=== PATIENT | female | born 1940 | race Caucasian/White ===

== ENCOUNTER 2016-10-06 00:46 | Emergency (ER) | payer MEDICARE ==
[~2016-10-06 00:46] MED LIST: ALBU2.5V4 INHALATION; ALPR1TAB7 PO; AMLO10TA3 PO; CLOP75TA3 PO; CLOT21CR7 VAGINAL; FLUT12AE8 IH; INSU100V4 SUBQ; LOSA100T29 PO; LOVA20TA PO; METF1000 PO; METO200T32 PO; MUPI22OI2 TOP; RANI300C PO; TRAZ-115 PO; VENL150C PO
[2016-10-06 00:58] VITALS: BP 194/83; RESP 14; O2SAT 100
--- NOTE | 2016-10-06 01:09 | ED.REPORT ---
HPI-General Illness Date of Service Oct 06, 2016 ED Provider: Saul Barreto DO Patient is a 76 year old female with a history of prior stroke, diabetes mellitus, hypertension, and COPD who presents to the ED complaining of a nosebleed persistent nosebleed that began at 8pm this evening. The patient states that she has been bleeding out of both nostrils, but more out of the right side. She also had a nosebleed last night before going to bed. Patient states that she picks at her nose often and that she has a hard time not doing so. The patient admits that she took a dose of Plavix this evening, believing that it would stop her bleeding. The patient no longer takes this medication regularly. Patient denies any other sources of bleeding. Patient is not on any other blood thinning medications. Nursing Notes Stated Complaint: NOSEBLEED Chief Complaint: ENT & Mouth Nursing Notes Reviewed: Yes Allergies: Coded Allergies: gabapentin (Verified Allergy, Unknown, Makes her act like she is drunk, ) Scheduled Amlodipine (Amlodipine) 10 Mg Tablet 10 MG PO DAILY Clopidogrel Bisulfate (Plavix) 75 Mg Tablet 75 MG PO DAILY Fluticasone Propionate (Flovent HFA 110 mcg) 12 Gm Aer.w.adap 2 PUFFS IH BID Insulin Detemir (Levemir U100 Insulin Vial) 100 Unit/1 Ml Vial 30 UNIT SUBQ BID Lovastatin (Lovastatin) 20 Mg Tablet 20 MG PO HS Metformin (Glucophage) 1,000 Mg Tablet 1,000 MG PO BID Metoprolol Succinate ER (Metoprolol Succinate ER) 200 Mg Tab.er.24h 200 MG PO DAILY Mupirocin (Mupirocin Ointment) 22 Gm Oint...g. 1 APPLIC TOP TID Ranitidine (Ranitidine) 300 Mg Capsule 300 MG PO HS Trazodone (Trazodone) 50 Mg Tablet 50 MG PO HS Venlafaxine ER (Effexor XR) 150 Mg Capsule 150 MG PO DAILY Scheduled PRN Albuterol Neb Soln (Albuterol Neb Soln) 2.5 Mg/3 Ml Vial.neb 2.5 MG INHALATION Q4H PRN PRN For Cough Miscellaneous Medications Alprazolam (Alprazolam) 1 Mg Tablet 1 MG PO Clotrimazole 2% (Gyne-Lotrimin 3 2%) 21 Gm Cream.appl 21 GM VAGINAL Losartan Potassium (Losartan Potassium) 100 Mg Tablet 100 MG PO General Time Seen by MD: 01:08 Chief Complaint Other (nosebleed) Hx Obtained From: Patient Arrived By: Walk-in Sudden in Onset?: No Onset Occurred: 5 - 8 hours ago Symptom Duration: Since onset Severity: Current: No pain currently Severity: Maximum: No pain Recent Healthcare: No recent doctor visit, No recent hospitalization Similar Sx Previous: Yes Past Medical History Past Medical History Hx of stroke High cholesterol Reports: COPD, Diabetes mellitus, Hypertension Past Surgical History knee replacement 2014 Family History Noncontributory Smoking History Former Smoker Social History Other Social History: Good social support, Local resident Ambulatory Status Independent Review of Systems Full Review of Systems Ears / Nose / Throat: Reports: Nose bleeding, Denies: Sinus problem Hematologic: Reports Bleeding, Denies Bruising Complete sys rev & neg: except as marked. Physical Exam Vital Signs Vital Signs Date Time Temp Pulse Resp B/P Pulse Ox O2 Delivery O2 Flow Rate FiO2 10/06/16 02:24 58 185/98 93 Room Air 10/06/16 00:58 35.1 88 14 194/83 100 Room Air Initial VS: Reviewed Extremities: Vascular intact, Neuro intact, No swelling Skin: Warm, Dry, No cyanosis Neurologic: Alert, Oriented, Nonfocal Psychiatric: Mood/affect normal, Behavior normal, Normal thought content General/Constitutional: Awake, Alert, No acute distress Appearance / Presentation: Positive: Obese Head / Eyes: Atraumatic, Normocephalic, PERRL ENT: Airway patent Nose: Positive: Anterior bleed ([place]), Epistaxis left, Epistaxis right Neck: Supple, Full range of motion Respiratory / Chest: No respiratory distress, No stridor Cardiovascular: Heart rate NL, Regular rhythm, Cap refill not delayed Interpretation & Diagnostics Lab Results Interpretation Result Diagram: 10/06/16 0133 10/06/16 0133 Test 10/06/16 01:33 White Blood Count 13.9th/mm3 (3.8-10.1) Red Blood Count 4.67mil/mm3 (3.90-5.20) Hemoglobin 11.4g/dL (12.0-15.6) Hematocrit 37.0% (35.0-46.0) Mean Corpuscular Volume 79.2fL (81-100) Mean Corpuscular Hemoglobin 24.4pg (27.0-35.0) Mean Corpuscular Hemoglobin Concent 30.8% (32.0-37.0) Red Cell Distribution Width 17.2% (12.3-15.4) Platelet Count 376bil/L (150-400) Neutrophils (%) (Auto) 56.1% (40-74) Lymphocytes (%) (Auto) 29.2% (14-46) Monocytes (%) (Auto) 9.8% (4-12) Eosinophils (%) (Auto) 3.2% (0-5) Basophils (%) (Auto) 0.9% (0-3) Sodium Level 138mEq/L (134-144) Potassium Level 4.9mEq/L (3.5-5.2) Chloride Level 101mEq/L (97-108) Carbon Dioxide Level 21mmol/L (18-29) Blood Urea Nitrogen 29mg/dL (8-27) Creatinine 1.23mg/dL (0.57-1.00) Estimat Glomerular Filtration Rate 60mL/min (>59) Glucose Level 253mg/dL (60-99) Calcium Level 8.7mg/dL (8.5-10.1) Total Bilirubin 0.3mg/dL (0.0-1.2) Aspartate Amino Transf (AST/SGOT) 14U/L (0-50) Alanine Aminotransferase (ALT/SGPT) 12U/L (0-32) Alkaline Phosphatase 91U/L (25-165) Total Protein 7.6g/dL (6.4-8.4) Albumin 3.8g/dL (3.4-5.0) Procedures Epistaxis Management Time: 01:50 Procedure Performed by: ED physician Consent / Setup / Site Prep: Consent from patient, Time-out performed, Oxygen administered, Pulse oximeter applied, commercial loan manager applied, Hand hygiene observed, Stand sterile technique Side and Location of Bleed: Nare right - anterior Pre-medication and Procedure: Oxymetazoline, Rapid rhino inserted Post-Procedure / Complications: Bleeding stopped, Patient stable, Tolerated procedure well Re-Eval/Medical Decision Med Decision/Clinical Course Excellent hemostasis with the Rhino Rocket. No blood pouring down the posterior oropharynx or refluxing out the opposite nares. H&H is reassuring. She tells me that she has a chronically elevated white blood cell count and her white blood cell count seems to be at its baseline. I will place her on Keflex while the pack is in place and referred nose and throat. Source of Hx: Old records Time of Eval: 01:50 Patient Status: Condition improved Re-Evaluation/Progress Note: Epistaxis management preformed. Bleeding is improved. Time of Eval: 02:50 Patient Status: Condition improved Re-Evaluation/Progress Note: Patient reports that she is still bleeding. On examination she simply has blood dripping from her nose. Discussed her lab results and need for close follow-up. Patient understands and agrees with the plan to be discharged home. Discharge instructions and follow-up discussed. All questions were addressed. Return to the ED warnings given. Counseled Regarding: Diagnosis, Lab results, Need for follow-up, When/why to return to ED Discharge & Departure Primary Impression: Epistaxis Disposition: Home Discharge Condition All VS Reviewed: Yes Condition: Stable Patient Instructions: Epistaxis (ED) Additional Instructions: Take Keflex 3 times daily while the packing is in. Try to leave the packing in for at least 2 days. It should be removed within the next 3 days. Set up an appointment with ENT to have your epistaxis definitively managed. Laboratory shows mildly elevated white blood count, mild anemia, and dehydration. Follow-up on this with your primary care physician. Call your primary care physician and ENT tomorrow for next available follow-up. Return to the Emergency Department if you experience persistent bleeding or any other concerning symptoms. Referrals: Chelsey Moore MD (PCP) Onur Peacock MD Attestation Portions of this note were transcribed by Samantha Rhoades. I, Dr. Barreto personally performed the history, physical exam and medical decision-making; I reviewed and confirmed the accuracy of the information in the transcribed note. Signed by: Connie Gibbons, 10/06/2016 0253 copies to: Chelsey Moore MD; Onur Peacock MD, Todd P DO Oct 06, 2016 01:08 Samantha Rhoades Oct 06, 2016 01:31
[2016-10-06 01:48] LABS: BASOPHILS % (AUTO) 0.9 % (0-3); EOSINOPHILS % (AUTO) 3.2 % (0-5); MONOCYTES % (AUTO) 9.8 % (4-12); Mean Corpuscular Hemoglobin 24.4 pg (27.0-35.0); Mean Corpuscular Volume 79.2 fL (81-100); NEUTROPHILS % (AUTO) 56.1 % (40-74); Platelet Count 376 bil/L (150-400)
[2016-10-06 02:24] VITALS: BP 185/98; PULSE 58; O2SAT 93
== END 2016-10-06 02:53 | disposition home or self-care (01) ==
LOC: SED 00:46
DX: R04.0 Epistaxis (principal); E11.9 Type 2 diabetes mellitus without complications; I10 Essential (primary) hypertension; J44.9 Chronic obstructive pulmonary disease, unspecified; Z86.73 Personal history of transient ischemic attack (TIA), and cerebral infarction without residual deficits; Z79.4 Long term (current) use of insulin; Z79.84 Long term (current) use of oral hypoglycemic drugs; Z87.891 Personal history of nicotine dependence; Z88.8 Allergy status to other drugs, medicaments and biological substances